=== PATIENT | female | born 1990 | race African-American/Black ===

== ENCOUNTER 2018-09-01 10:06 | Emergency (ER) | payer MEDICAID ==
[~2018-09-01] VITALS: Ht 165.1 cm; Wt 79.8 kg
[~2018-09-01 10:06] MED LIST: AZITHROMYCIN250 MG ORAL; KEFLEX PED250 MG/5 M PO; NITROFURANTOIN100 M2 ORAL; NKM; TRAMADOL HCL50 MG ORAL; TYLENOL325 MG ORAL
[2018-09-01] MEDS ORDERED: NKM (10:17)
[2018-09-01 10:50] VITALS: BP 114/73
[2018-09-01 11:53] LABS: APPEARANCE,URINE SLIGHTLY CLOUDY; BILIRUBIN, URINE NEGATIVE (NEGATIVE); COLOR,URINE PALE YELLOW; GLUCOSE, URINE (UA) NEGATIVE (NEGATIVE); KETONES,URINE NEGATIVE (NEGATIVE); LEUKOCYTE ESTERASE ,URINE 1+ (NEGATIVE); NITRITE,URINE NEGATIVE (NEGATIVE); PH,URINE 8 (4.5-8.0); PROTEIN,URINE NEGATIVE (NEGATIVE); UROBILINOGEN,URINE NORMAL MG/DL (0.0-1.0)
[2018-09-01 12:27] LABS: BASOPHILS % (AUTO) 0.6 % (0.0-2.0); EOSINOPHILS % (AUTO) 2.3 % (0.0-3.0); HEMATOCRIT 34.7 % (37.0-47.0); HEMOGLOBIN 11.4 G/DL (12.0-16.0); LYMPHOCYTES % (AUTO) 33.1 % (20.0-45.0); MEAN CORPUSCULAR VOLUME 90 FL (80-99); MONOCYTES % (AUTO) 6.3 % (1.0-10.0); NEUTROPHILS % (AUTO) 57.6 % (45.0-75.0); PLATELET COUNT 286 K/UL (150-450); RED BLOOD COUNT 3.86 M/UL (4.20-5.40); RED CELL DISTRIBUTION WIDTH 11.7 % (11.6-14.8)
[2018-09-01 12:39] LABS: ANION GAP 9 mmol/L (5-15); BLOOD UREA NITROGEN 10 mg/dL (7-18); CALCIUM 9.1 MG/DL (8.5-10.1); CARBON DIOXIDE 27 MMOL/L (21-32); CHLORIDE 104 MMOL/L (98-107); CREATININE 0.7 MG/DL (0.55-1.30); POTASSIUM 4.1 MMOL/L (3.5-5.1); SODIUM 140 MMOL/L (136-145)
[2018-09-01 12:43] LABS: ALANINE AMINOTRANSFERASE 18 U/L (12-78); ALBUMIN 3.7 G/DL (3.4-5.0); ALBUMIN/GLOBULIN RATIO 0.8 (1.0-2.7); ALKALINE PHOSPHATASE 82 U/L (46-116); ASPARTATE AMINO TRANSFERASE 11 U/L (15-37); BILIRUBIN,TOTAL 0.3 MG/DL (0.2-1.0)
--- NOTE | 2018-09-01 12:46 | Diagnostic Imaging Report ---
Indication: Pelvic pain, vaginal bleeding, reported positive test Technique: Transabdominal and transvaginal images. Doppler interrogation of the ovaries Comparison: 07/31/2016 Findings: There is is retroverted, measures 9.5 cm length by 4.9 cm AP. Endometrium measures 7 cm thick. No gestational sac demonstrated. One or 2 cystic structures measuring less than 2 mm are questionably seen at the junctional zone of the endometrium. Note that this is similar to that different in location from finding reported on the 2016 exam. No myometrial abnormality demonstrated. The right ovary measures 2.5 cm length. Left ovary measures 2.5 cm length. No ovarian or adnexal mass demonstrated. There is free fluid with a small amount of debris in the pelvis Impression: No intrauterine gestational sac is demonstrated. Note that the quantitative beta-hCG is still pending at the time of interpretation. If patient is indeed , then differential considerations include very early , spontaneous , ectopic . Correlate with serial beta hCGs and clinical findings, consider follow-up sonography as indicated One or 2 tiny cystic structures within the endometrial space, nonspecific, either of which could represent a small gestational sac but this is far from certain. No similar finding reported on 2016 exam, although a different location Free pelvic fluid with debris, most likely physiologic Negative for adnexal mass
--- NOTE | 2018-09-01 14:10 | Emergency Room Report ---
History of Present Illness General Chief Complaint: Complications Source: Patient Present Illness HPI Patient presents with vaginal bleeding. She was seen 08/27 by her MD and was told she was 7 weeks . The bleeding has continued from that time. Sometimes she has passed clots and has not recognized tissue. There is no pain at this time. No dysuria. Post miscarriage X2 in past. Has children. No fevers, NVD, URI sy, dyspnea, calf pain or swelling. No rashes or headache. She is unsure, but believes her blood type is A+. Allergies: Coded Allergies: No Known Allergies (Unverified , 03/06/14) Patient History Past Medical History: see triage record Social History: Denies: smoking Social History Narrative with sig other - 2 children : 6 Para: 2 Reviewed Nursing Documentation: PMH: Agreed; PSxH: Agreed Nursing Documentation-PMH Past Medical History: No History, Except For Hx Cardiac Problems: No Hx Hypertension: No Hx Pacemaker: No Hx Asthma: Yes - childhood asthma Hx COPD: No Hx Diabetes: No Hx Cancer: No Hx Gastrointestinal Problems: Yes Hx Dialysis: No Hx Neurological Problems: No Hx Cerebrovascular Accident: No Hx Seizures: No Review of Systems All Other Systems: negative except mentioned in HPI Physical Exam Vital Signs Date Time Temp Pulse Resp B/P (MAP) Pulse Ox O2 Delivery O2 Flow Rate FiO2 09/01/18 10:10 97.7 79 17 114/73 98 Room Air Sp02 EP Interpretation: reviewed, normal General Appearance: well appearing, no apparent distress, GCS 15 Head: normocephalic Eyes: bilateral eye normal inspection, bilateral eye PERRL ENT: moist mucus membranes Neck: supple Respiratory: lungs clear, normal breath sounds Cardiovascular #1: regular rate, rhythm Cardiovascular #2: 2+ radial (R) Gastrointestinal: normal inspection, normal bowel sounds, non tender, no mass, non-distended Genitourinary: no CVA tenderness, deferred - for ultrasound Musculoskeletal: back normal, gait/station normal, normal range of motion Neurologic: alert, oriented x3, grossly normal Psychiatric: mood/affect normal Skin: normal inspection, warm/dry Medical Decision Making Diagnostic Impression: Primary Impression: Miscarriage ER Course Patient with vaginal bleeding with h/o . DDX: threatened miscarriage, complete miscarriage, UTI amongst others. As no pain, doubt ectopic but this needs to be excluded. Labs and ultrasound indicated. Ultrasound, no IUP. Quant = 78. CBC normal. UA clear. Blood type A+ Based on history and quant, most likely complete miscarriage. Cannot fully exclude early . Discussed this with patient and suggested follow up quant and exam. Patient stable for outpatient observation and treatment. Laboratory Tests Test 09/01/18 11:30 09/01/18 12:15 Urine Color Pale yellow Urine Appearance Slightly cloudy Urine pH 8 (4.5-8.0) Urine Specific [place] 1.015 (1.005-1.035) Urine Protein Negative (NEGATIVE) Urine Glucose (UA) Negative (NEGATIVE) Urine Ketones Negative (NEGATIVE) Urine Blood 5+ (NEGATIVE) H Urine Nitrite Negative (NEGATIVE) Urine Bilirubin Negative (NEGATIVE) Urine Urobilinogen Normal MG/DL (0.0-1.0) Urine Leukocyte Esterase 1+ (NEGATIVE) H Urine RBC Tntc /HPF (0 - 2) H Urine WBC 2-4 /HPF (0 - 2) Urine Squamous Epithelial Cells Moderate /LPF (NONE/OCC) H Urine Bacteria Occasional /HPF (NONE) White Blood Count 7.0 K/UL (4.8-10.8) Red Blood Count 3.86 M/UL (4.20-5.40) L Hemoglobin 11.4 G/DL (12.0-16.0) L Hematocrit 34.7 % (37.0-47.0) L Mean Corpuscular Volume 90 FL (80-99) Mean Corpuscular Hemoglobin 29.4 PG (27.0-31.0) Mean Corpuscular Hemoglobin Concent 32.7 G/DL (32.0-36.0) Red Cell Distribution Width 11.7 % (11.6-14.8) Platelet Count 286 K/UL (150-450) Mean Platelet Volume 6.5 FL (6.5-10.1) Neutrophils (%) (Auto) 57.6 % (45.0-75.0) Lymphocytes (%) (Auto) 33.1 % (20.0-45.0) Monocytes (%) (Auto) 6.3 % (1.0-10.0) Eosinophils (%) (Auto) 2.3 % (0.0-3.0) Basophils (%) (Auto) 0.6 % (0.0-2.0) Prothrombin Time 10.4 SEC (9.30-11.50) Prothrombin Time INR 1.0 (0.9-1.1) PTT 29 SEC (23-33) Sodium Level 140 MMOL/L (136-145) Potassium Level 4.1 MMOL/L (3.5-5.1) Chloride Level 104 MMOL/L (98-107) Carbon Dioxide Level 27 MMOL/L (21-32) Anion Gap 9 mmol/L (5-15) Blood Urea Nitrogen 10 mg/dL (7-18) Creatinine 0.7 MG/DL (0.55-1.30) Estimate Glomerular Filtration Rate > 60 mL/min (>60) Glucose Level 84 MG/DL (74-106) Calcium Level 9.1 MG/DL (8.5-10.1) Total Bilirubin 0.3 MG/DL (0.2-1.0) Aspartate Amino Transferase (AST) 11 U/L (15-37) L Alanine Aminotransferase (ALT) 18 U/L (12-78) Alkaline Phosphatase 82 U/L (46-116) Total Protein 8.6 G/DL (6.4-8.2) H Albumin 3.7 G/DL (3.4-5.0) Globulin 4.9 g/dL Albumin/Globulin Ratio 0.8 (1.0-2.7) L Lipase 110 U/L (73-393) Human Chorionic Gonadotropin, Quant 78 mIU/mL (1-6) H Last Vital Signs Date Time Temp Pulse Resp B/P (MAP) Pulse Ox O2 Delivery O2 Flow Rate FiO2 09/01/18 14:17 98.0 88 20 122/80 98 Room Air Status: improved Disposition: HOME, SELF-CARE Condition: Improved Referrals: NON PHYSICIAN (PCP) Salty Centeno MD Sep 01, 2018 14:10
[2018-09-01 14:17] VITALS: BP 122/80
== END 2018-09-01 14:17 | disposition home or self-care (01) ==
LOC: EMR 11:36
DX: O03.9 Complete or unspecified spontaneous abortion without complication (principal)
CPT/HCPCS: 36415; 76801; 80053; 81003; 83690; 84702; 85025; 85610; 85730; 86850; 86900; 86901; 96360; 99284

== ENCOUNTER 2020-09-05 02:33 | Emergency (ER) | payer MEDICAID ==
[~2020-09-05] VITALS: Ht 170.2 cm; Wt 72.6 kg
[2020-09-05 02:40] VITALS: BP 124/89
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
[2020-09-05] MEDS ORDERED: LORazepam 0.5mg tab ORAL ONE (03:00)
[2020-09-05] MEDS ORDERED: ATIVAN0.5 MG ORAL (03:30)
[2020-09-05 03:46] VITALS: BP 114/76
--- NOTE | 2020-09-05 14:55 | Diagnostic Imaging Report ---
Indication: Chest pain Technique: One view of the chest Comparison: 12/23/2015 Findings: Lungs and pleural spaces are clear. Heart size is normal. No significant change Impression: No acute process
--- NOTE | 2020-09-08 13:14 | Cardiology Report ---
APPROVED REPORT EKG Measurement Heart [id number] <Conclusion> Normal sinus rhythm with sinus arrhythmia Nonspecific T wave abnormality Abnormal ECG
== END 2020-09-05 03:46 | disposition home or self-care (01) ==
LOC: EMR 02:49
DX: R07.89 Other chest pain (principal)
CPT/HCPCS: 71045; 81025; 93005; Z7502; 99284